=== PATIENT | male | born 1995 | race Caucasian/White ===

== ENCOUNTER 2022-06-17 06:52 | Emergency (ER) | payer BC ==
[~2022-06-17] VITALS: Ht 190.5 cm; Wt 125.3 kg
[2022-06-17] MEDS ORDERED: dexamethasone sod phosphate 10mg/ml inj IM STA (12:50)
[2022-06-17] MEDS ORDERED: ketorolac trometh inj. 60 MG/2 ML VIAL IM ONE (12:50)
[2022-06-17] MEDS ORDERED: LORazepam 1 MG tablet PO ONE (12:50)
[2022-06-17] MEDS ORDERED: diphenhydrAMINE 25mg capsule PO ONE (12:50)
[2022-06-17] MEDS ORDERED: ketorolac trometh. 30mg/ml inj. IM ONE (12:55)
[2022-06-17] MEDS ORDERED: ALBU6.7H14 INH (13:02)
[2022-06-17] MEDS ORDERED: DEXA6TAB PO (13:02)
[2022-06-17] MEDS ORDERED: LIDO20SO16 PO (13:02)
[2022-06-17] MEDS ORDERED: NAPR-56 PO (13:02)
[2022-06-17 13:30] VITALS: BP 121/73
== END 2022-06-17 13:33 | disposition home or self-care (01) ==
LOC: ER 06:54
DX: B34.9 Viral infection, unspecified (principal); Z20.822 Contact with and (suspected) exposure to COVID-19; J02.9 Acute pharyngitis, unspecified; R51.9 Headache, unspecified; R09.81 Nasal congestion; F17.200 Nicotine dependence, unspecified, uncomplicated; Z72.89 Other problems related to lifestyle; Z88.0 Allergy status to penicillin
CPT/HCPCS: 87502; 87503; 87635; 96372; 99284; C9803; J1100; J1885; Q0163